=== PATIENT | male | born 1995 | race Caucasian/White ===

== ENCOUNTER 2020-12-02 10:49 | Emergency (ER) | payer BC, MEDICAID ==
[2020-12-02 11:03] VITALS: BP 128/71; PULSE 73; O2SAT 99
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
== END 2020-12-02 11:40 | disposition home or self-care (01) ==
LOC: ED 10:49
DX: L30.9 Dermatitis, unspecified (principal)
CPT/HCPCS: 99283